=== PATIENT | female | born 1960 | race Caucasian/White ===

== ENCOUNTER → 2017-07-16 | Outpatient (CLI) | payer BC | LOC: CIMAGING 13:13 | PROVIDERS: ATTEND Family Medicine | DX: J98.11 Atelectasis (principal); J45.909 Unspecified asthma, uncomplicated | CPT/HCPCS: 71020-PO ==

== ENCOUNTER → 2019-03-08 | Outpatient (CLI) | payer BC | LOC: CIMAGING 12:47 ==